=== PATIENT | female | born 2000 | race Caucasian/White ===

== ENCOUNTER 2021-07-22 15:28 | Outpatient (CLI) | payer BC ==
[2021-07-23 00:11] LABS: SARS-CoV-2 PCR by NAA Not Detected (NotDetected)
== END 2021-07-22 15:29 | disposition home or self-care (01) ==
LOC: CSHLAB 15:28
PROVIDERS: ATTEND Internal Medicine Pulmonary Disease
DX: Z01.812 Encounter for preprocedural laboratory examination (principal); Z20.822 Contact with and (suspected) exposure to COVID-19
CPT/HCPCS: U0003; U0005

== ENCOUNTER 2021-07-27 15:45 | Outpatient (CLI) | payer BC | END 2021-07-27 15:46 | disposition home or self-care (01) | LOC: CSHCP 15:45 | PROVIDERS: ATTEND Internal Medicine Pulmonary Disease | DX: U07.1 COVID-19 (principal) | CPT/HCPCS: 94060; 94726; 94729; 94760 ==